=== PATIENT | female | born 1955 | race Caucasian/White ===

== ENCOUNTER 2017-12-25 20:33 | Inpatient (IN) | payer OTHER ==
[~2017-12-25] VITALS: Ht 157.5 cm; Wt 64.9 kg
[2017-12-25 20:39] VITALS: Ht 157.5 cm; Wt 64.9 kg
[2017-12-25 21:15] LABS: BASOPHIL % 0.5 % (0-2); PLATELET COUNT 292 x10^3mcL (130-400)
[2017-12-25 21:27] LABS: ALKALINE PHOSPHATASE 133 U/L (46-116); ALT/SGPT 40 U/L (14-59); AST/SGOT 57 U/L (15-37); BILIRUBIN TOTAL 0.4 mg/dL (0.20-1.00); CALCIUM 8.3 mg/dL (8.5-10.1); CARBON DIOXIDE 28.8 mmol/L (21-32); CREATININE SERUM 0.9 mg/dL (0.6-1.0); GFR1 > 60 mL/min; GLUCOSE SERUM 440 mg/dL (74-106); LIPASE 230 IU/L (73-393)
[2017-12-25 21:34] LABS: CHLORIDE SERUM 102 mmol/L (98-107); POTASSIUM SERUM 4.2 mmol/L (3.5-5.1); SODIUM SERUM 136 mmol/L (136-145)
[2017-12-25 21:36] LABS: ALBUMIN 3.1 g/dL (3.4-5.0)
[2017-12-25 22:26] LABS: microscopic required? NO
[2017-12-25 22:39] LABS: urine erythrocyte NEGATIVE (NEGATIVE)
[2017-12-25] MEDS ORDERED: GLUCOTROL10 MG PO (22:48)
[2017-12-25] MEDS ORDERED: LIPI20 PO (22:49)
[2017-12-25] MEDS ORDERED: ASPIR 8181 MG PO (22:49)
[2017-12-25] MEDS ORDERED: ACT15 PO (22:49)
[2017-12-25] MEDS ORDERED: METFORMIN HCL850 MG PO (22:50)
[2017-12-25 23:28] VITALS: BP 164/80
[2017-12-26] VITALS (7 sets, daily range): BP systolic 128–175; BP diastolic 74–90
[2017-12-26 05:54] LABS: BASOPHIL % 0.4 % (0-2); PLATELET COUNT 259 x10^3mcL (130-400); RED CELL DISTRIBUTION WIDTH 13.8 % (11.5-14.5)
[2017-12-26 06:04] LABS: CARBON DIOXIDE 26.7 mmol/L (21-32); CHLORIDE SERUM 106 mmol/L (98-107); CREATININE SERUM 0.7 mg/dL (0.6-1.0); GFR1 > 60 mL/min; GLUCOSE SERUM 277 mg/dL (74-106); POTASSIUM SERUM 4.3 mmol/L (3.5-5.1); SODIUM SERUM 139 mmol/L (136-145)
[2017-12-27] VITALS (7 sets, daily range): BP systolic 135–173; BP diastolic 64–85
[2017-12-27 06:35] LABS: BASOPHIL % 0.6 % (0-2); PLATELET COUNT 272 x10^3mcL (130-400); RED CELL DISTRIBUTION WIDTH 14.2 % (11.5-14.5)
[2017-12-27 07:04] LABS: ALBUMIN 2.7 g/dL (3.4-5.0); BILIRUBIN DIRECT 0.1 mg/dL (0.0-0.2); BILIRUBIN TOTAL 0.5 mg/dL (0.20-1.00); TOTAL PROTEIN, SERUM 6.5 g/dL (6.4-8.2)
[2017-12-28 06:09] LABS: PLATELET COUNT 297 x10^3mcL (130-400); RED CELL DISTRIBUTION WIDTH 14.1 % (11.5-14.5)
[2017-12-28 06:27] LABS: ALKALINE PHOSPHATASE 366 U/L (46-116); ALT/SGPT 350 U/L (14-59); AST/SGOT 348 U/L (15-37); BILIRUBIN TOTAL 0.6 mg/dL (0.20-1.00); CALCIUM 8.2 mg/dL (8.5-10.1); CARBON DIOXIDE 26.5 mmol/L (21-32); CHLORIDE SERUM 102 mmol/L (98-107); CREATININE SERUM 0.7 mg/dL (0.6-1.0); GFR1 > 60 mL/min; GLUCOSE SERUM 209 mg/dL (74-106); POTASSIUM SERUM 4.2 mmol/L (3.5-5.1); SODIUM SERUM 135 mmol/L (136-145)
[2017-12-28 06:33] VITALS: BP 186/93
[2017-12-28 06:38] LABS: ALBUMIN 2.9 g/dL (3.4-5.0)
[2017-12-28 06:51] VITALS: BP 140/69
[2017-12-28 10:09] VITALS: BP 139/68
[2017-12-28 11:39] LABS: BAND NEUTROPHIL 2 % (0-10); BASOPHIL 0 % (0-2); MONOCYTE 2 % (0-7); SEGMENTED NEUTROPHILS 85 % (37-75)
[2017-12-28 11:40] LABS: rbc morphology (normal/abnorm) ABNORMAL (NORMAL)
[2017-12-28 13:06] LABS: ALBUMIN 2.8 g/dL (3.4-5.0); ALKALINE PHOSPHATASE 320 U/L (46-116); ALT/SGPT 327 U/L (14-59); AMYLASE 58 U/L (25-115); AST/SGOT 299 U/L (15-37); BILIRUBIN TOTAL 0.7 mg/dL (0.20-1.00); CALCIUM 8.4 mg/dL (8.5-10.1); CARBON DIOXIDE 28.6 mmol/L (21-32); CHLORIDE SERUM 104 mmol/L (98-107); CREATININE SERUM 0.7 mg/dL (0.6-1.0); GFR1 > 60 mL/min; GLUCOSE SERUM 175 mg/dL (74-106); LIPASE 127 IU/L (73-393); POTASSIUM SERUM 4.3 mmol/L (3.5-5.1); SODIUM SERUM 137 mmol/L (136-145); TOTAL PROTEIN, SERUM 6.6 g/dL (6.4-8.2)
[2017-12-28 13:56] VITALS: BP 136/79
[2017-12-28 16:23] VITALS: BP 136/79
== END 2017-12-28 17:26 | disposition home or self-care (01) | DRG 263 ==
LOC: ED 20:33 → DU 22:34 → MU 22:34 → DU 12-26 02:34
PROVIDERS: Emergency Medicine; Internal Medicine; Internal Medicine Pulmonary Disease; Surgery
PROC: 0FT44ZZ Resection of Gallbladder, Percutaneous Endoscopic Approach (ICD-10-PCS; principal; 2017-12-27 13:30)
DX: K81.0 Acute cholecystitis (principal); E11.65 Type 2 diabetes mellitus with hyperglycemia; I10 Essential (primary) hypertension; M19.90 Unspecified osteoarthritis, unspecified site
CPT/HCPCS: 82962; 94150; J1170; J1815; J1885; J2250; J2270; J2405; J2543; J3010; J3490; J7030; Q0092

== ENCOUNTER 2018-10-26 19:23 | Emergency (ER) | payer OTHER ==
[~2018-10-26] VITALS: Ht 162.6 cm; Wt 67.1 kg
[~2018-10-26 19:23] MED LIST: ACT15 PO; ASPIR 8181 MG PO; GLUCOTROL10 MG PO; LIPI20 PO; METFORMIN HCL850 MG PO
[2018-10-26 20:02] VITALS: Ht 162.6 cm; Wt 67.1 kg
[2018-10-26 20:25] LABS: BASOPHIL % 0.6 % (0-2); PLATELET COUNT 331 x10^3mcL (130-400)
[2018-10-26 20:26] LABS: RED CELL DISTRIBUTION WIDTH 15.3 % (11.5-14.5)
[2018-10-26 20:35] LABS: CALCIUM 8.6 mg/dL (8.5-10.1); CARBON DIOXIDE 26.3 mmol/L (21-32); CHLORIDE SERUM 99 mmol/L (98-107); CREATININE SERUM 0.7 mg/dL (0.6-1.0); GFR1 > 60 mL/min; GLUCOSE SERUM 423 mg/dL (74-106); POTASSIUM SERUM 4.3 mmol/L (3.5-5.1); SODIUM SERUM 134 mmol/L (136-145)
[2018-10-26 20:39] LABS: ALKALINE PHOSPHATASE 249 U/L (46-116); ALT/SGPT 205 U/L (14-59); AMYLASE 60 U/L (25-115); AST/SGOT 110 U/L (15-37); BILIRUBIN TOTAL 0.2 mg/dL (0.20-1.00); LIPASE 245 IU/L (73-393); TOTAL PROTEIN, SERUM 7.8 g/dL (6.4-8.2)
[2018-10-26 20:45] LABS: ALBUMIN 3.3 g/dL (3.4-5.0)
[2018-10-26 22:42] VITALS: BP 180/100
== END 2018-10-26 22:43 | disposition home or self-care (01) ==
LOC: ED 19:23
PROVIDERS: Emergency Medicine
DX: R19.7 Diarrhea, unspecified (principal); M54.9 Dorsalgia, unspecified; E11.65 Type 2 diabetes mellitus with hyperglycemia; I10 Essential (primary) hypertension; M19.90 Unspecified osteoarthritis, unspecified site; Z90.49 Acquired absence of other specified parts of digestive tract
CPT/HCPCS: 36415